=== PATIENT | male | born 1965 | race Hispanic/Latino ===

== ENCOUNTER 2024-05-02 16:40 | Inpatient (IN) | payer SELFPAY ==
[~2024-05-02] VITALS: Ht 165.1 cm; Wt 69.4 kg
[2024-05-02 18:17] LABS: BASOPHILS # (AUTO) 0.05 K/uL (0.00-0.20); BASOPHILS % (AUTO) 0.4 % (0.0-5.0); EOSINOPHILS # (AUTO) 0.05 K/uL (0.00-0.70); EOSINOPHILS % (AUTO) 0.4 % (0.0-8.0); IMMATURE GRANULOCYTE ABSOLUTE 0.12 K/uL (0-1); LYMPHOCYTES # (AUTO) 2.2 K/uL (1.0-4.8); LYMPHOCYTES % (AUTO) 19.4 % (21.0-51.0); MEAN CORPUSCULAR HEMOGLOBIN 27.2 pg (27.0-33.0); MEAN CORPUSCULAR HGB CONC 32.1 g/dL (32.0-36.0); MEAN CORPUSCULAR VOLUME 84.6 fL (79-99); MONOCYTES # (AUTO) 0.5 K/uL (0.1-1.0); MONOCYTES % (AUTO) 4.6 % (3.0-13.0); NEUTROPHILS # (AUTO) 8.3 K/uL (1.8-7.7); NEUTROPHILS % (AUTO) 74.1 % (40.0-77.0); PLATELET COUNT (AUTO) 498 K/uL (130-400); RED CELL DISTRIBUTION WIDTH 13.2 % (11.0-15.5); WHITE BLOOD COUNT (AUTO) 11.2 K/uL (4.8-10.8)
[2024-05-02 18:29] LABS: CREATININE 0.7 mg/dL (0.5-1.3); INR 1.01 (0.85-1.15); POTASSIUM 4.1 mmol/L (3.5-5.1); PROTHROMBIN TIME 10.9 SEC (9.6-11.6)
[2024-05-02 18:30] LABS: PARTIAL THROMBOPLASTIN TIME 31.9 SEC (26.3-35.5)
[2024-05-02 19:24] LABS: ERYTHROCYTE SEDIMENTATION RATE 126 MM/HR (0-20)
[2024-05-02] MEDS: ceFEPime HCL 1 GM VIAL IVPB ONE (20:58)
[2024-05-02] MEDS: ketOROlac 15MG/ML VIAL (15MG/ML) IV ONE (20:58)
[2024-05-02] MEDS: VANCOMYCIN KIT 1 GM/250 ML IV.KIT IV ONE (20:59)
[2024-05-02] MEDS: morPHINE 2 MG SYG IVP ONE (22:30)
[2024-05-03] VITALS (8 sets, daily range): BP systolic 111–133; BP diastolic 69–85; PULSE 75–96; RESP 18–20; TEMP 98.1–98.8; O2SAT 97–100
[2024-05-03] MEDS ORDERED: MAGNESIUM 2GM PREMIX 50ML 50 ML IV PRN
[2024-05-03] MEDS ORDERED: PoTASSium chloRIDE 20MEQ/100ML 100 ML IV PRN
[2024-05-03] MEDS ORDERED: VANCOMYCIN PROTOCOL PER PHARMACY IV PRN
[2024-05-03] MEDS ORDERED: ondanSETRON 4MG INJ IV PRN
[2024-05-03] MEDS ORDERED: DEXTROSE 50%-WATER 50 ML DISP.SYRIN IV PRN
[2024-05-03] MEDS ORDERED: PoTASSium chl 10% ELIXIR 20MEQ 20 MEQ/15 ML UDCUP PO PRN
[2024-05-03] MEDS ORDERED: GLUCAGON 1MG KIT 1 MG ML IM PRN
[2024-05-03] MEDS: 0.9%NACL 1000ML 1,000 ML IV SCH (00:07)
[2024-05-03] MEDS: morPHINE 2 MG SYG IVP PRN (01:41)
[2024-05-03] MEDS ORDERED: GLIP10TA9 PO (02:17)
[2024-05-03] MEDS ORDERED: METF-444 PO (02:47)
[2024-05-03] MEDS: ceFEPime HCL 2 GM VIAL IVPB SCH (04:11)
[2024-05-03] MEDS: ketOROlac 15MG/ML VIAL (15MG/ML) IV PRN (04:22)
[2024-05-03 05:20] LABS: BASOPHILS # (AUTO) 0.03 K/uL (0.00-0.20); BASOPHILS % (AUTO) 0.4 % (0.0-5.0); EOSINOPHILS # (AUTO) 0.06 K/uL (0.00-0.70); EOSINOPHILS % (AUTO) 0.8 % (0.0-8.0); HEMATOCRIT 28.6 % (42-54); IMMATURE GRANULOCYTE ABSOLUTE 0.09 K/uL (0-1); LYMPHOCYTES % (AUTO) 24.9 % (21.0-51.0); MEAN CORPUSCULAR HEMOGLOBIN 26.8 pg (27.0-33.0); MEAN CORPUSCULAR HGB CONC 31.5 g/dL (32.0-36.0); MEAN CORPUSCULAR VOLUME 85.1 fL (79-99); MONOCYTES # (AUTO) 0.5 K/uL (0.1-1.0); MONOCYTES % (AUTO) 6.5 % (3.0-13.0); NEUTROPHILS # (AUTO) 5.2 K/uL (1.8-7.7); NEUTROPHILS % (AUTO) 66.3 % (40.0-77.0); PLATELET COUNT (AUTO) 437 K/uL (130-400); RED BLOOD CELL COUNT(AUTO) 3.36 MIL/uL (4.50-6.20); RED CELL DISTRIBUTION WIDTH 13.5 % (11.0-15.5); WHITE BLOOD COUNT (AUTO) 7.8 K/uL (4.8-10.8)
[2024-05-03 05:57] LABS: ALBUMIN 1.7 g/dL (3.5-5.0); BILIRUBIN,TOTAL 0.3 mg/dL (0.2-1.0); CREATININE 0.8 mg/dL (0.5-1.3); POTASSIUM 3.9 mmol/L (3.5-5.1); TOTAL PROTEIN, SERUM 7.5 g/dL (6.0-8.3); URIC ACID 2.2 mg/dL (2.6-7.2)
[2024-05-03 06:01] LABS: HEMOGLOBIN A1C 12.5 % (4.0-6.0)
[2024-05-03 06:30] LABS: ERYTHROCYTE SEDIMENTATION RATE 108 MM/HR (0-20)
[2024-05-03] MEDS: INSULIN humuLIN R 100 UNIT/ML 3ML SQ SCH (06:59)
[2024-05-03] MEDS ORDERED: COMPOUND IV REFRIGERATED 1 EACH IVSOLN MISC PRN (09:30)
[2024-05-03] MEDS: VANCOMYCIN 1.25 GM/250 ML BAG 250 ML IV SCH (09:31)
[2024-05-03] MEDS: FAMOTIDINE 20MG TAB PO SCH (09:31)
[2024-05-04] VITALS (29 sets, daily range): BP systolic 103–137; BP diastolic 63–93; PULSE 55–97; RESP 12–19; TEMP 97.4–98.8; O2SAT 100
[2024-05-04] MEDS: INSULIN GLARgine 100 UNITS/ML 10 ML VIAL SQ SCH (07:33)
[2024-05-04 08:46] LABS: BASOPHILS # (AUTO) 0.03 K/uL (0.00-0.20); BASOPHILS % (AUTO) 0.4 % (0.0-5.0); EOSINOPHILS # (AUTO) 0.05 K/uL (0.00-0.70); EOSINOPHILS % (AUTO) 0.6 % (0.0-8.0); HEMATOCRIT 29.6 % (42-54); IMMATURE GRANULOCYTE ABSOLUTE 0.04 K/uL (0-1); LYMPHOCYTES # (AUTO) 1.6 K/uL (1.0-4.8); LYMPHOCYTES % (AUTO) 19.9 % (21.0-51.0); MEAN CORPUSCULAR HGB CONC 31.4 g/dL (32.0-36.0); MONOCYTES # (AUTO) 0.5 K/uL (0.1-1.0); NEUTROPHILS # (AUTO) 5.8 K/uL (1.8-7.7); NEUTROPHILS % (AUTO) 72.6 % (40.0-77.0); PLATELET COUNT (AUTO) 369 K/uL (130-400); RED BLOOD CELL COUNT(AUTO) 3.44 MIL/uL (4.50-6.20); RED CELL DISTRIBUTION WIDTH 13.5 % (11.0-15.5)
[2024-05-04 09:01] LABS: CREATININE 0.8 mg/dL (0.5-1.3); POTASSIUM 3.6 mmol/L (3.5-5.1); VANCOMYCIN TROUGH 12.8 UG/ML (10.0-20.0)
[2024-05-04] MEDS ORDERED: LIDOCAINE PF 100MG/5ML (2%) SYRINGE 5ML ONE (09:31)
[2024-05-04] MEDS ORDERED: SUCCINYLCHOLINE CHLORIDE 20 MG/ML 10 ML VIAL ONE (09:31)
[2024-05-04] MEDS ORDERED: dexaMETHasone SOD PHOSPHATE 10MG/ML 1ML VIAL ONE (09:31)
[2024-05-04] MEDS ORDERED: GLYCOPYRROLATE 0.2 MG/ML 5 ML VIAL ONE (09:32)
[2024-05-04] MEDS ORDERED: ondanSETRON 4MG INJ ONE (09:32)
[2024-05-04] MEDS ORDERED: proPOFol 10 MG/ML 20ML VIAL IV ONE (09:32)
[2024-05-04] MEDS ORDERED: rocuRONium bROMide 10MG/1ML 5ML VL ONE (09:32)
[2024-05-04] MEDS ORDERED: NEOSTIGMINE METHYLSULFATE 1MG/ML IV ONE (09:32)
[2024-05-04] MEDS ORDERED: FENTanyl CITRate PF 50 MCG/1 ML 2ML VIAL ONE ×2 (09:32→09:55)
[2024-05-04] MEDS ORDERED: MIDAZOLAM HCL 1 MG/ML 2ML VIAL ONE (09:32)
[2024-05-04] MEDS: BUPIvacaine/PF 0.5% 30ML VIAL ONE (10:15)
[2024-05-04] MEDS ORDERED: MEPERIDINE-PF 25 MG/ML SYG ONE (10:34)
[2024-05-04] MEDS ORDERED: HYDROcodone/APAP 5/325 1 TAB TABLET PO PRN (11:00)
[2024-05-04] MEDS ORDERED: CALCIUM CARB 500MG PO PRN (11:00)
[2024-05-04] MEDS ORDERED: PoTASSium chloRIDE 20MEQ ER 20 MEQ ERTAB PO PRN (11:00)
[2024-05-04] MEDS ORDERED: FERROUS FUMARATE 324 MG TABLET PO PRN (11:00)
[2024-05-04] MEDS ORDERED: PoTASSium chloRIDE 20MEQ/100ML 100 ML IV PRN (11:00)
[2024-05-04] MEDS ORDERED: PoTASSium chl 10% ELIXIR 20MEQ 20 MEQ/15 ML UDCUP PO PRN (11:00)
[2024-05-04] MEDS: MEPERIDINE-PF 25 MG/ML SYG ONE (11:06)
[2024-05-04] MEDS ORDERED: INSULIN humuLIN R 100 UNIT/ML 3ML SQ SCH (11:30)
[2024-05-04] MEDS: PSYLLIUM SEED 1 EACH PACKET PO SCH (13:04)
[2024-05-04] MEDS: 0.9%NACL 1000ML 1,000 ML IV SCH (13:04)
[2024-05-05] VITALS (8 sets, daily range): BP systolic 121–135; BP diastolic 70–79; PULSE 58–83; RESP 16–19; TEMP 98.1–98.8; O2SAT 99
[2024-05-05] MEDS: HYDROcodone/APAP 5/325 1 TAB TABLET PO PRN (01:36)
[2024-05-05 05:23] LABS: BASOPHILS # (AUTO) 0.03 K/uL (0.00-0.20); BASOPHILS % (AUTO) 0.3 % (0.0-5.0); EOSINOPHILS # (AUTO) 0.05 K/uL (0.00-0.70); EOSINOPHILS % (AUTO) 0.6 % (0.0-8.0); HEMATOCRIT 26.3 % (42-54); IMMATURE GRANULOCYTE ABSOLUTE 0.06 K/uL (0-1); LYMPHOCYTES # (AUTO) 2.3 K/uL (1.0-4.8); LYMPHOCYTES % (AUTO) 26.6 % (21.0-51.0); MEAN CORPUSCULAR HEMOGLOBIN 27.1 pg (27.0-33.0); MEAN CORPUSCULAR HGB CONC 32.7 g/dL (32.0-36.0); MONOCYTES # (AUTO) 0.6 K/uL (0.1-1.0); MONOCYTES % (AUTO) 7.3 % (3.0-13.0); NEUTROPHILS # (AUTO) 5.6 K/uL (1.8-7.7); NEUTROPHILS % (AUTO) 64.5 % (40.0-77.0); PLATELET COUNT (AUTO) 428 K/uL (130-400); RED BLOOD CELL COUNT(AUTO) 3.17 MIL/uL (4.50-6.20); RED CELL DISTRIBUTION WIDTH 13.5 % (11.0-15.5); WHITE BLOOD COUNT (AUTO) 8.7 K/uL (4.8-10.8)
[2024-05-05 05:34] LABS: INR 1.06 (0.85-1.15); PROTHROMBIN TIME 11.4 SEC (9.6-11.6)
[2024-05-05 05:50] LABS: ALBUMIN 1.6 g/dL (3.5-5.0); BILIRUBIN,TOTAL 0.3 mg/dL (0.2-1.0); CREATININE 0.9 mg/dL (0.5-1.3); MAGNESIUM 1.7 mg/dL (1.80-2.40); POTASSIUM 3.7 mmol/L (3.5-5.1); TOTAL PROTEIN, SERUM 7.1 g/dL (6.0-8.3)
[2024-05-05] MEDS: PoTASSium chloRIDE 20MEQ ER 20 MEQ ERTAB PO PRN (06:59)
[2024-05-05] MEDS: polyETHYLene GLYCol 3350 17 GM POWD.PACK PO SCH (08:50)
[2024-05-05] MEDS: INSULIN humuLIN R 100 UNIT/ML 3ML SQ SCH (11:30)
[2024-05-05] MEDS: traMADol HCL 50 MG TABLET PO PRN (17:23)
[2024-05-06] VITALS (8 sets, daily range): BP systolic 99–127; BP diastolic 65–77; PULSE 70–87; RESP 13–19; TEMP 98.2–98.7; O2SAT 97–98
[2024-05-06] MEDS: ketOROlac 15MG/ML VIAL (15MG/ML) IV PRN (04:58)
[2024-05-06 05:16] LABS: BASOPHILS # (AUTO) 0.04 K/uL (0.00-0.20); BASOPHILS % (AUTO) 0.5 % (0.0-5.0); EOSINOPHILS # (AUTO) 0.08 K/uL (0.00-0.70); HEMATOCRIT 30.8 % (42-54); IMMATURE GRANULOCYTE ABSOLUTE 0.04 K/uL (0-1); LYMPHOCYTES # (AUTO) 2.1 K/uL (1.0-4.8); LYMPHOCYTES % (AUTO) 26.3 % (21.0-51.0); MEAN CORPUSCULAR HEMOGLOBIN 26.7 pg (27.0-33.0); MEAN CORPUSCULAR HGB CONC 31.2 g/dL (32.0-36.0); MEAN CORPUSCULAR VOLUME 85.8 fL (79-99); MONOCYTES # (AUTO) 0.4 K/uL (0.1-1.0); MONOCYTES % (AUTO) 5.2 % (3.0-13.0); NEUTROPHILS # (AUTO) 5.4 K/uL (1.8-7.7); NEUTROPHILS % (AUTO) 66.5 % (40.0-77.0); PLATELET COUNT (AUTO) 453 K/uL (130-400); RED BLOOD CELL COUNT(AUTO) 3.59 MIL/uL (4.50-6.20); RED CELL DISTRIBUTION WIDTH 13.6 % (11.0-15.5); WHITE BLOOD COUNT (AUTO) 8.1 K/uL (4.8-10.8)
[2024-05-06 05:28] LABS: INR 1.05 (0.85-1.15); PROTHROMBIN TIME 11.3 SEC (9.6-11.6)
[2024-05-06 06:14] LABS: CREATININE 0.7 mg/dL (0.5-1.3); POTASSIUM 4.1 mmol/L (3.5-5.1)
[2024-05-06 06:52] LABS: % IRON SATURATION 11.8 % (30-44)
[2024-05-06] MEDS: VANCOMYCIN 1.5 GM/250 ML IV SCH (09:59)
[2024-05-06] MEDS: INSULIN GLARgine 100 UNITS/ML 10 ML VIAL SQ SCH (10:05)
[2024-05-06] MEDS: BisaCODYL 5 MG TABLET.DR PO PRN (10:15)
[2024-05-06 12:01] LABS: RETICULOCYTE % (AUTO) 1.85 % (0.42-2.23)
[2024-05-06] MEDS: ceFAZolin SODIUM 1 GM VIAL IVPB SCH (13:25)
[2024-05-07 00:08] VITALS: BP 122/66; PULSE 73; RESP 18; TEMP 98.4
[2024-05-07 05:28] LABS: HEMATOCRIT 29.6 % (42-54); MEAN CORPUSCULAR HEMOGLOBIN 26.3 pg (27.0-33.0); MEAN CORPUSCULAR HGB CONC 31.4 g/dL (32.0-36.0); MEAN CORPUSCULAR VOLUME 83.6 fL (79-99); RED BLOOD CELL COUNT(AUTO) 3.54 MIL/uL (4.50-6.20); RED CELL DISTRIBUTION WIDTH 13.6 % (11.0-15.5)
[2024-05-07 05:35] LABS: INR 1.03 (0.85-1.15); PROTHROMBIN TIME 11.1 SEC (9.6-11.6)
[2024-05-07 05:55] VITALS: BP 115/75; PULSE 73; RESP 18; TEMP 98.6
[2024-05-07 08:00] VITALS: BP 115/70; PULSE 72; RESP 18; TEMP 98.6
[2024-05-07 08:10] VITALS: O2SAT 99
[2024-05-07] MEDS: INSULIN GLARgine 100 UNITS/ML 10 ML VIAL SQ SCH (08:20)
[2024-05-07] MEDS ORDERED: INSU10VI3 SQ (08:39)
[2024-05-07] MEDS: EPOETIN ALFA-EPBX (NON-ESRD) 10,000 UNIT/ML VIAL SQ ONE (10:03)
[2024-05-07] MEDS ORDERED: BisaCODYL 10 MG SUPP.RECT RC PRN (11:00)
[2024-05-07 11:48] VITALS: BP 121/73; PULSE 78; RESP 18; TEMP 97.5
[2024-05-07] MEDS ORDERED: PHARMACY COMMUNICATION MISC ONE (12:00)
[2024-05-07 16:00] VITALS: BP 116/76; PULSE 95; RESP 18; TEMP 98.5
== END 2024-05-07 19:49 | disposition home or self-care (01) | DRG 571 ==
LOC: EDH 16:40 → EDHIP 23:41 → EDBD 23:41 → 3DH 05-03 01:54
PROVIDERS: ADMIT Hospitalist; ATTEND Hospitalist
PROC: 0JBP0ZZ Excision of Left Lower Leg Subcutaneous Tissue and Fascia, Open Approach (ICD-10-PCS; principal; 2024-05-04 09:40)
DX: L02.416 Cutaneous abscess of left lower limb (principal); D62 Acute posthemorrhagic anemia; E87.1 Hypo-osmolality and hyponatremia; L03.116 Cellulitis of left lower limb; E11.65 Type 2 diabetes mellitus with hyperglycemia; I10 Essential (primary) hypertension; E03.9 Hypothyroidism, unspecified; Z79.4 Long term (current) use of insulin; Z79.84 Long term (current) use of oral hypoglycemic drugs
CPT/HCPCS: 36415; 73562; 73701; 76882; 80048; 80053; 80202; 82607; 82728; 82948; 83036; 83605; 83735; 84145; 84484; 84550; 85025; 85027; 85610; 85651; 85730; 86140; 87040; 87070; 87076; 87086; 87116; 87186; 87205; 87206; 96365; 96366; 96368; 96375; A6266; G0378; J0330; J0690; J0692; J1100; J1815; J1885; J2001; J2175; J2250; J2270; J2405; J2704; J2710; J3010; J3370; J3490; J7030; 3370; A4216; A4222; A4223; A4649; A4663; A4930; A6450; J0665; Q5106

== ENCOUNTER → 2024-05-11 | Outpatient (CLI) | payer SELFPAY ==
[~2024-05-11] MED LIST: GLIP10TA9 PO; INSU10VI3 SQ; LIDOCAINE HCL 4% LTA SOL 4 ML VIAL TP ONE; METF-444 PO
== END | disposition home or self-care (01) ==
LOC: WHH 10:15
PROVIDERS: ATTEND Family Medicine
DX: T81.89XA Other complications of procedures, not elsewhere classified, initial encounter (principal); S81.802A Unspecified open wound, left lower leg, initial encounter; E11.65 Type 2 diabetes mellitus with hyperglycemia; I10 Essential (primary) hypertension; Z87.891 Personal history of nicotine dependence; Z79.84 Long term (current) use of oral hypoglycemic drugs; Z79.899 Other long term (current) drug therapy; X58.XXXA Exposure to other specified factors, initial encounter; Y93.89 Activity, other specified; Y92.89 Other specified places as the place of occurrence of the external cause; Y99.8 Other external cause status; Y83.8 Other surgical procedures as the cause of abnormal reaction of the patient, or of later complication, without mention of misadventure at the time of the procedure; Y82.8 Other medical devices associated with adverse incidents
CPT/HCPCS: 99214; A6212

== ENCOUNTER → 2024-05-25 | Outpatient (CLI) | payer SELFPAY ==
[~2024-05-25] MED LIST changes: +GLIP10TA16 PO; -GLIP10TA9 PO
== END | disposition home or self-care (01) ==
LOC: WHH 08:13
PROVIDERS: ATTEND Family Medicine
DX: T81.89XD Other complications of procedures, not elsewhere classified, subsequent encounter (principal); S81.802D Unspecified open wound, left lower leg, subsequent encounter; E11.65 Type 2 diabetes mellitus with hyperglycemia; I10 Essential (primary) hypertension; E03.9 Hypothyroidism, unspecified; Z79.4 Long term (current) use of insulin; Z87.891 Personal history of nicotine dependence; Z79.84 Long term (current) use of oral hypoglycemic drugs; Z79.899 Other long term (current) drug therapy; X58.XXXD Exposure to other specified factors, subsequent encounter; Y83.8 Other surgical procedures as the cause of abnormal reaction of the patient, or of later complication, without mention of misadventure at the time of the procedure
CPT/HCPCS: 99214; A6212

== ENCOUNTER 2024-06-08 09:46 | Outpatient (CLI) | payer SELFPAY ==
[~2024-06-08 09:46] MED LIST changes: -LIDOCAINE HCL 4% LTA SOL 4 ML VIAL TP ONE
== END 2024-06-08 13:34 | disposition home or self-care (01) ==
LOC: WHH 09:46
PROVIDERS: ATTEND Family Medicine
DX: T81.89XD Other complications of procedures, not elsewhere classified, subsequent encounter (principal); S81.802D Unspecified open wound, left lower leg, subsequent encounter; E11.65 Type 2 diabetes mellitus with hyperglycemia; I10 Essential (primary) hypertension; E03.9 Hypothyroidism, unspecified; Z79.4 Long term (current) use of insulin; Z87.891 Personal history of nicotine dependence; Z79.84 Long term (current) use of oral hypoglycemic drugs; Z79.899 Other long term (current) drug therapy; X58.XXXD Exposure to other specified factors, subsequent encounter; Y83.8 Other surgical procedures as the cause of abnormal reaction of the patient, or of later complication, without mention of misadventure at the time of the procedure
CPT/HCPCS: 99214